=== PATIENT | male | born 1960 | race Caucasian/White ===

== ENCOUNTER 2021-04-20 21:13 | Emergency (ER) | payer MEDICARE, OTHER ==
[2021-04-20 21:51] LABS: HEMOGLOBIN 15.5 gm/dl (14.0-17.5); RED BLOOD COUNT 5.06 M/UL (4.20-5.50); WHITE BLOOD COUNT 8.8 K/UL (4.5-11.0)
[2021-04-20 22:17] LABS: BUN/CREATININE RATIO 15 (0-10)
== END 2021-04-20 22:50 | disposition home or self-care (01) ==
LOC: ER1 21:13
PROVIDERS: Emergency Medicine
DX: I10 Essential (primary) hypertension (principal); R05 Cough
CPT/HCPCS: 80053; 82550; 82553; 84484; 85025; 93005; 99283